=== PATIENT | male | born 2000 | race Caucasian/White ===

== ENCOUNTER 2023-09-19 14:02 | Outpatient (REF) | payer MEDICAID, SELFPAY ==
[2023-09-19 15:49] LABS: CT PCR NOT DETECTED (Not Detect.); NG PCR NOT DETECTED (Not Detect.)
[2023-09-23 02:39] LABS: C. Trachomatis RNA TMA, Throat NOT DETECTED; N. gonorrhoeae RNA TMA, Throat NOT DETECTED
[2023-09-23 12:54] LABS: C.Trachomatis RNA TMA, Rectal NOT DETECTED; N.Gonorrhoeae RNA TMA, Rectal NOT DETECTED
== END 2023-09-19 14:03 | disposition home or self-care (01) ==
LOC: HO.HHCLNP 14:02
PROVIDERS: Visit Provider Advanced Practice Midwife
DX: Z11.3 Encounter for screening for infections with a predominantly sexual mode of transmission (principal)
CPT/HCPCS: 0353U; 87491; 87591

== ENCOUNTER 2024-06-01 16:47 | Outpatient (REF) | payer MEDICAID, SELFPAY ==
[2024-06-02 04:45] LABS: CT PCR NOT DETECTED (Not Detect.); NG PCR NOT DETECTED (Not Detect.)
[2024-06-04 12:24] LABS: C. Trachomatis RNA TMA, Throat NOT DETECTED; N. gonorrhoeae RNA TMA, Throat NOT DETECTED
[2024-06-05 10:03] LABS: C.Trachomatis RNA TMA, Rectal NOT DETECTED; N.Gonorrhoeae RNA TMA, Rectal NOT DETECTED
== END 2024-06-01 16:48 | disposition home or self-care (01) ==
LOC: HO.HHCLNP 16:47
PROVIDERS: Visit Provider Advanced Practice Midwife
DX: Z11.3 Encounter for screening for infections with a predominantly sexual mode of transmission (principal)
CPT/HCPCS: 87491; 87591

== ENCOUNTER 2025-05-27 12:39 | Outpatient (REF) | payer OTHER, SELFPAY ==
--- OUTSIDE RECORDS SUMMARY | 2025-05-27 14:15 | XMS_ITS | Encounter Summary ---
Author Organization [employer] Address [address] [place] [address] [place] [address] Care Team Providers Care Machine Guide Base Winder Name Role Phone Claudine Palencia MD Primary Care Provider + Encounter Details Date Type Department Care Team ([facility] st Contact Info) Description 05/27/2025 2:15 PM EDT Office Visit [facility] [address] [place], [place] [phone] Claudine Palencia MD [address] [place] [address] Sexually transmitted disease counseling (Primary Dx); Mild depression; Gender dysphoria in adult; Preventative health care; Overweight Social History Tobacco Use Types Packs/Day Years Used Date Smoking Tobacco: Former Smokeless Tobacco: Never Alcohol Use Standard Drinks/Week Comments Never 0 (1 standard drink = 0.6 oz pur e alcohol) Depression Answer Date Recorded Patient Health Questionnaire-9 Score 8 05/27/2025 Patient Health Questionnaire-9 Score 8 05/27/2025 Last PHQ-9: Questionnaire Data Not on file 0 05/27/2025 Housing Stability Answer Date Recorded What is your housing situation today? I have housing today, but I am worried about losing housing in the future 05/27/[address] you li ve. Do you have problems with any of the following? None of the above 05/27/2025 Food Insecurity Answer Date Recorded Within the past 12 months, y ou worried that your food would run out before you got money to buy more: Sometimes True 2024 Within the past 12 months,th e food you bought just didn't last and you didn't have enough money to get more: Sometimes True 05/27/2025 Transportation Answer Date Recorded In the past 12 months, has l ack of transportation kept you from medical appts, meetings, work or from getting things needed for daily living? No 05/27/2025 Utilities Answer Date Recorded In the past 12 months, has t he electric, gas, oil or water company threatened to shut off services in your home? No 05/27/2025 Depression Answer Date Recorded Patient Health Questionnaire-2 Score 0 05/27/2025 Internet Access Answer Date Recorded Internet Access Q1 Yes 05/27/2025 Internet Access Q2 Not on file 05/27/2025 Sex and Gender Information Value Date Recorded Sex Assigned at Male 07/02/2022 10:20 AM EDT Legal Sex Female 10:20 AM EDT Gender Identity Transgender Female 07/02/2022 10 :20 AM EDT Sexual Orientation Straight 05/26/2025 8: 46 AM EDT documented as of this encounter Last Filed Vital Signs Vital Sign Reading Time Taken Comments Blood Pressure 128/78 05/27/2025 2:27 PM EDT Pulse 88 05/27/2025 2:27 PM EDT Temperature 36.2 C (97.2 F) 05/27/2025 2:27 PM EDT Respiratory Rate 24 05/27/2025 2:27 PM EDT Oxygen Saturation - - Inhaled Oxygen Concentration - - Weight 84.5 kg (186 lb 6 oz) 05/27/2025 2:27 PM EDT Height 174.6 cm (5' 8.75 ) 05/27/2025 2:27 PM ED T Body Mass Index 27.72 05/27/2025 2:27 PM EDT documented in this encounter Functional Status * Over the past 2 weeks, how often have you been bothered by any of the following problems? Question Answer Date of Assessment Author Patient Health Questionnaire-2 Score 0 05/04 3:38 PM EDT Marilyn Hinton MA * Little interest or pleasure in doing things Answer Date of Assessment Author Not at all 05/27/2025 3:38 PM EDT Marilyn Hinton MA * Feeling down, depressed, or hopeless Answer Date of Assessment Author Not at all 05/27/2025 3:38 PM EDT Marilyn Hinton MA * Trouble falling or staying asleep, or sleeping too much Answer Date of Assessment Author More than half the days 05/27/2025 3:38 PM EDT Marilyn Dunn MA * Feeling tired or having little energy Answer Date of Assessment Author Several days 05/27/2025 3:38 PM EDT Marilyn Hinton MA * Poor appetite or overeating Answer Date of Assessment Author Nearly every day 05/27/2025 3:38 PM EDT Marilyn Hinton MA * Feeling bad about yourself - or that you are a failure or have let yourself or your family down Answer Date of Assessment Author Not at all 05/27/2025 3:38 PM EDT Marilyn Hinton MA * Trouble concentrating on things, such as reading the newspaper or watching television Answer Date of Assessment Author Several days 05/27/2025 3:38 PM EDT Marilyn Hinton MA * Moving or speaking so slowly that other people could have noticed? Or the opposite - being so fidgety or restless that you have been moving around a lot more than usual. Answer Date of Assessment Author Several days 05/27/2025 3:38 PM EDT Marilyn Hinton MA * Thoughts that you would be better off or hurting yourself in some way Answer Date of Assessment Author Not at all 05/27/2025 3:38 PM EDT Marilyn Hinton MA * Patient Health Questionnaire-9 Score Answer Date of Assessment Author 8 05/27/2025 3:38 PM EDT Marilyn Hinton MA * Over the last 2 weeks, how often have you been bothered by any of the following problems? Question Answer Date of Assessment Author Feeling nervous, anxious, or on edge 2 05/04 3:36 PM EDT Marilyn Hinton MA Not being able to stop or co ntrol worrying 0 05/27/2025 3:36 PM EDT Marilyn Hinton M A Worrying too much about diff erent things 0 05/27/2025 3:36 PM EDT Marilyn Hinton M A Trouble relaxing 0 05/27/2025 3:36 PM EDT Marilyn Dunn MA Being so restless that it is hard to sit still 0 05/27/2025 3:36 PM EDT Marilyn Hinton M A Becoming easily annoyed or irritable 1 05/04 3:36 PM EDT Marilyn Hinton MA Feeling afraid as if somethi ng awful might happen 0 05/27/2025 3:36 PM EDT Marilyn Hinton Shauna Babcock CAROL-7 Total Score 3 05/27/2025 3:36 PM EDT Marilyn Hinton MA documented as of this encounter Plan of Treatment Upcoming Encounters Date Type Department Care Team (Late st Contact Info) Description 08/06/2025 9:45 AM EST Office Visit [facility] [address] [place] [address] Claudine Palencia MD [address] [place], [place] [phone] Scheduled Orders Name Type Priority Associated Diagnoses Orde r Schedule Hepatitis Panel, General Lab Routine Sexually transmitted disease counseling Expected: 05/27/2025 (Approximate), Expires: 05/27/2026 HIV-1/2 Antigen and Antibodies, Fourth Generation, with Reflexes Lab Routine Sexually transmitted disease counseling Expected: 05/27/2025 (Approximate), Expires: 05/27/2026 Lipid Panel with Reflex to Direct LDL Lab Routine Overweight Expected: 05/27/2025 (Approximate), Expires: 05/27/2026 Syphilis Screen Lab Routine Sexually transmitted disease counseling Expected: 05/27/2025 (Approximate), Expires: 05/27/2026 TSH with Reflex to Free T4 Lab Routine Mild depression Overweight Expected: 05/27/2025 (Approximate), Expires: 05/27/2026 CBC auto differential Lab Routine Mild depression Expected: 05/27/2025 (Approximate), Expires: 05/27/2026 Comprehensive Metabolic Panel Lab Routine Mild depression Overweight Expected: 05/27/2025 (Approximate), Expires: 05/27/2026 Chlamydia/N. Gonorrhoeae RNA, TMA, Rectal Microbiology Routine Sexually transmitted disease counseling Expected: 05/27/2025 (Approximate), Expires: 05/27/2026 Chlamydia/N. Gonorrhoeae RNA, TMA, Throat Microbiology Routine Sexually transmitted disease counseling Expected: 05/27/2025 (Approximate), Expires: 05/27/2026 documented as of this encounter Visit Diagnoses Diagnosis Sexually transmitted disease counseling- Primary Counseling on other sexually transmitted diseases Mild depression Depressive disorder, not elsewhere classified Gender dysphoria in adult Preventative health care Routine general medical examination at a health care facility Overweight documented in this encounter Additional Health Concerns Assessment Noted Time PHQ-9 Depression Total Score: 8 05/27/20 3:38 PM EDT documented as of this encounter Care Teams Machine Guide Base Winder Relationship Specialty Start Date End Date Claudine Palencia MD [address] [place] [phone] PCP - General Internal Medicine 05/27/25 documented as of this encounter
--- OUTSIDE RECORDS SUMMARY | 2025-05-28 14:13 | XMS_ITS | Encounter Summary ---
Author Organization [employer] Address [address] [place] [address] Care Team Providers Care Medical Accountant Name Role Phone Zulema Almonte Primary Care Provider [phone] Claudine Palencia MD Primary Care Provider + Reason for Visit * Reason Onset Date Comments Med Refill 09/12/2023 Encounter Details Date Type Department Care Team (Late st Contact Info) Description 09/12/2023 Telephone [facility] [address] [place], [place] [phone] Zulema Almonte ANP [address] [place], [place] [phone] Med Refill Social History Tobacco Use Types Packs/Day Years Used Date Smoking Tobacco: Former Smokeless Tobacco: Never Sex and Gender Information Value Date Recorded Sex Assigned at Male 07/02/2022 10:20 AM EDT Legal Sex Female 10:20 AM EDT Gender Identity Transgender Female 07/02/2022 10 :20 AM EDT Sexual Orientation Straight 05/26/2025 8: 46 AM EDT documented as of this encounter Miscellaneous Notes * Telephone Encounter - Viktoriya Orellana LPN - 09/12/2023 2:12 PM EST Medication was sent on 08/23/23 #12 with 1 refill to [facility] #[id number]. * Telephone Encounter - Claudia Murillo - 09/12/2023 2:09 PM EST TC from pt requesting medication refill. Medications needing refill : Syringe/Needle, Disp, (B-D 3CC LUER-LILIA SYR 20GX1 ) 20G X 1 3 ML misc To be sent to: [id number] - [address] documented in this encounter Plan of Treatment Upcoming Encounters Date Type Department Care Team (Late st Contact Info) Description 08/06/2025 9:45 AM EST Office Visit [facility] [address] [place] [address] Claudine Palencia MD [address] [place] [phone] documented as of this encounter Visit Diagnoses Not on filedocumented in this encounter Care Teams Medical Accountant Relationship Specialty Start Date End Date Zulema Almonte ANP [address] [place] [phone] PCP - General Family Medicine 04/27/22 12/24/23 Claudine Palencia MD [address] [place] [id number] PCP - General Internal Medicine 05/27/25 documented as of this encounter
--- OUTSIDE RECORDS SUMMARY | 2025-05-28 14:13 | XMS_ITS | Encounter Summary ---
Author Organization [employer] Address [address] [place] [address] [place] [address] Care Team Providers Care Operations Welder Name Role Phone Claudine Palencia MD Primary Care Provider + Encounter Details Date Type Department Care Team ([facility] st Contact Info) Description 12/30/2024 Telephone [facility] [address] [place], [place] [phone] Caleb Sewell MD [address] [place] [address] Social History Tobacco Use Types Packs/Day Years Used Date Smoking Tobacco: Former Smokeless Tobacco: Never Alcohol Use Standard Drinks/Week Comments Never 0 (1 standard drink = 0.6 oz pur e alcohol) Depression Answer Date Recorded Patient Health Questionnaire-9 Score 3 01/31/2024 Patient Health Questionnaire-9 Score 3 01/31/2024 Last PHQ-9: Questionnaire Data Not on file 0 01/31/2024 Housing Stability Answer Date Recorded What is your housing situation today? I have lien [place] 10/29/[address] you li ve. Do you have problems with any of the following? None of the above 10/29/2023 Food Insecurity Answer Date Recorded Within the past 12 months, y ou worried that your food would run out before you got money to buy more: Never True 10/29/2023 Within the past 12 months,th e food you bought just didn't last and you didn't have enough money to get more: Never True Transportation Answer Date Recorded In the past 12 months, has l ack of transportation kept you from medical appts, meetings, work or from getting things needed for daily living? Yes, it has kept me from medical appointments or getting medications. 10/29/2023 Utilities Answer Date Recorded In the past 12 months, has t he electric, gas, oil or water company threatened to shut off services in your home? No 10/29/2023 Depression Answer Date Recorded Patient Health Questionnaire-2 Score 2 01/31/2024 Sex and Gender Information Value Date Recorded Sex Assigned at Male 07/02/2022 10:20 AM EDT Legal Sex Female 10:20 AM EDT Gender Identity Transgender Female 07/02/2022 10 :20 AM EDT Sexual Orientation Straight 05/26/2025 8: 46 AM EDT documented as of this encounter Plan of Treatment Upcoming Encounters Date Type Department Care Team (Late st Contact Info) Description 08/06/2025 9:45 AM EST Office Visit [facility] [address] [place] [phone] Claudine Palencia MD [address] [place] [phone] documented as of this encounter Visit Diagnoses Not on filedocumented in this encounter Additional Health Concerns Assessment Noted Time PHQ-9 Depression Total Score: 3 01/31/20 24 11:23 AM EDT documented as of this encounter Care Teams Operations Welder Relationship Specialty Start Date End Date Claudine Palencia MD [address] [place] [phone] PCP - General Internal Medicine 05/27/25 documented as of this encounter
--- OUTSIDE RECORDS SUMMARY | 2025-05-28 14:13 | XMS_ITS | Encounter Summary ---
Author Organization [employer] [facility] Address [address] [place] [address] Care Team Providers Care Medical I D Sales Name Role Phone Zulema Almonte Primary Care Provider [phone] Claudine Palencia MD Primary Care Provider + Encounter Details Date Type Department Care Team (Late st Contact Info) Description 08/06/2022 Telephone [facility] [address] [place] [phone] Zulema Almonte ANP [address] [place] [phone] Social History Tobacco Use Types Packs/Day Years Used Date Smoking Tobacco: Never Assessed Sex and Gender Information Value Date Recorded [...] Description 08/06/2025 9:45 AM EST Office Visit [facility] [address] [place] [phone] Claudine Palencia MD [address] [place] [address] documented as of this encounter Visit Diagnoses Not on filedocumented in this encounter Care Teams Medical I D Sales Relationship Specialty Start Date End Date Zulema Almonte ANP [address] [place] [address], [place] [address] PCP - General Family Medicine 04/27/22 12/24/23 Claudine Palencia MD [address] [place] [address] PCP - General Internal Medicine 05/27/25 documented as of this encounter
--- OUTSIDE RECORDS SUMMARY | 2025-05-28 14:13 | XMS_ITS | Encounter Summary ---
Author Organization [employer] Address [address] [place] [address] [place] [address] Care Team Providers Care Contract Agent Name Role Phone Claudine Palencia MD Primary Care Provider + Reason for Visit * Reason Comments Med Change Request Encounter Details Date Type Department Care Team ([facility] st Contact Info) Description 01/19/2024 Refill [facility] [address] [place], [place] [phone] Caleb Sewell MD [address] [place], [place] [phone] Social History Tobacco Use Types Packs/Day Years Used Date Smoking Tobacco: Former Smokeless Tobacco: Never Housing Stability Answer Date Recorded What is your housing situation today? I have lien sing 10/29/[address] you li [...] t he electric, gas, oil or water [employer] threatened to shut off services in your home? No 10/29/2023 Sex and Gender Information Value Date Recorded [...] Description 08/06/2025 9:45 AM EST Office Visit [facility] [address] [place] [address] Claudine Palencia MD [address] [place] [address] documented as of this encounter Visit Diagnoses Not on filedocumented in this encounter Care Teams Contract Agent Relationship Specialty Start Date End Date Claudine Palencia MD [address] [place] [address] PCP - General Internal Medicine 05/27/25 documented as of this encounter
--- OUTSIDE RECORDS SUMMARY | 2025-05-28 14:13 | XMS_ITS | Encounter Summary ---
Author Organization [employer] [facility] Address [address] [place] [address] Care Team Providers Care Corporate Law Specialist Name Role Phone Zulema Almonte Primary Care Provider [phone] Claudine Palencia MD Primary Care Provider + Reason for Visit * Reason Onset Date Comments Appointment Request 09/12/2023 Encounter Details Date Type Department Care Team (Late Contact Info) Description 09/12/2023 Telephone [facility] [address] [place] [phone] Zulema Almonte ANP [address] [place] [phone] Appointment Request Social History Tobacco Use Types Packs/Day Years [...] encounter Miscellaneous Notes * Telephone Encounter - Claudia Murillo - 09/12/2023 2:10 PM EST Tc from pt requesting a appt with Dr Galeana. documented in this encounter Plan of Treatment Upcoming Encounters Date Type Department Care Team (Late Contact Info) Description 08/06/2025 9:45 AM EST Office Visit [facility] [address] [place] [address] Claudine Palencia MD [address] [place] [address] documented as of this encounter Visit Diagnoses Not on filedocumented in this encounter Care Teams Corporate Law Specialist Relationship Specialty Start Date End Date Zulema Almonte ANP [address] [place] [address] PCP - General Family Medicine 04/27/22 12/24/23 Claudine Palencia MD [address] [place] [address] PCP - General Internal Medicine 05/27/25 documented as of this encounter
--- OUTSIDE RECORDS SUMMARY | 2025-05-28 14:13 | XMS_ITS | Encounter Summary ---
Author Organization [employer] Address [address] [place] [address] Care Team Providers Care Neon Pumper Name Role Phone Claudine Palencia MD Primary Care Provider + Reason for Visit * Reason Comments Med Change Request Encounter Details Date Type Department Care Team ([facility] st Contact Info) Description 03/05/2024 Refill [facility] [address] [place], [place] [phone] Whitney Glasgow MD [address] [place] [address] Social History Tobacco Use Types Packs/Day Years [...] 9:45 AM EST Office Visit [facility] [address] [place] [phone] Claudine Palencia MD [address] [place] [address] documented as of this encounter Visit Diagnoses Not on filedocumented in this encounter Additional Health Concerns Assessment Noted Time PHQ-9 Depression Total Score: 3 01/31/20 24 11:23 AM EDT documented as of this encounter Care Teams Neon Pumper Relationship Specialty Start Date End Date Claudine Palencia MD [address] [place] [address] PCP - General Internal Medicine 05/27/25 documented as of this encounter
--- OUTSIDE RECORDS SUMMARY | 2025-05-28 14:13 | XMS_ITS | Encounter Summary ---
Author Organization [employer] Address [address] [place] [address] Care Team Providers Care Stave Log Cut Off Saw Operator Name Role Phone Unavailable Primary Care Provider Unavailabl e Reason for Visit * Reason Onset Date Comments chart prep 05/26/2025 Encounter Details Date Type Department Care Team ([facility] Contact Info) Description 05/26/2025 Telephone [facility] [address] [place] [address] Claudine Palencia MD [address] [place] [address] chart prep Social History Tobacco Use Types Packs/Day Years [...] encounter Miscellaneous Notes * Telephone Encounter - Ania Carreon MA - 05/26/2025 3:57 PM EDT Chart Prep Labs: not applicable Images: not applicable Referrals: not applicable Vaccines due: Covid, Flu, and DTAP Screenings: not applicable Overdue care gaps: SBIRT, SDOH, PHQ-9, CAROL-7, and Disability screen documented in this encounter Plan of Treatment Upcoming Encounters Date Type Department Care Team (Late st Contact Info) Description 08/06/2025 9:45 AM EST Office Visit [facility] [address] [place] [address] Claudine Palencia MD [address] [place] [address] documented as of this encounter Visit Diagnoses Not on filedocumented in this encounter Additional Health Concerns Assessment Noted Time PHQ-9 Depression Total Score: 3 01/31/20 11:23 AM EDT documented as of this encounter
--- OUTSIDE RECORDS SUMMARY | 2025-05-28 14:13 | XMS_ITS | Clinical Summary ---
Author Organization [employer] Address [address] [place] [id number] Care Team Providers Care Package Maker Name Role Phone Claudine Palencia MD Primary Care Provider + Allergies No known active allergies Medications Alcohol Swabs (Alcohol Prep) pads 1 each 1 (one) time per week. 100 each 1 023 Active estradiol valerate (Delestrogen) 20 MG/ML injection INJECT 0.5 ML INTRAMUSCULARLY ONCE A WEEK DIRECTED 5 mL 025 Active Needle, Disp, (B-D HYPODERMIC NEEDLE 22GX1 ) 22G X 1 misc USE INTRAMUSCULARLY ONCE A WEEK. Use to administer medication 12 each 025 Active Syringe/Needl e, Disp, (B-D 3CC LUER-LILIA SYR 20GX1 ) 20G X 1 3 ML misc USE TO DRAW UP MEDICATION ONCE A WEEK 12 each Active spironolacton e (Aldactone) 25 MG tablet Take 1 tablet (25 mg) by mouth Once per day. 30 tablet 11 025 2025 Active estradiol valerate (Delestrogen) 20 MG/ML injection INJECT 0.5 ML INTRAMUSCULARLY ONCE A WEEK DIRECTED 5 mL 024 2024 Discontinued(R eorder (will not trigger notification to Pharmacy)) Needle, Disp, (B-D HYPODERMIC NEEDLE 22GX1 ) 22G X 1 misc USE INTRAMUSCULARLY ONCE A WEEK. Use to administer medication 12 each 024 2024 Discontinued(R eorder (will not trigger notification to Pharmacy)) Syringe/Needl e, Disp, (B-D 3CC LUER-LILIA SYR 20GX1 ) 20G X 1 3 ML misc USE TO DRAW UP MEDICATION ONCE A WEEK 12 each 024 2024 Discontinued(R eorder (will not trigger notification to Pharmacy)) Active Problems Problem Noted Date Diagnosed Date Gender dysphoria in adult 02/05/2024 Preoperative clearance 01/31/2024 Assessment & Plan (01/31/2024 2:58 PM EDT): 23 yo patient with multiple medical conditions here for preop evaluation. Most of her medical conditions are stable enough so that she can safely undergo planned procedure. She/he is a LOW risk patient. She's undergoing a LOW risk procedure. The risk of CV complication according to [employer] is 3.9%. At this time SHE IS ON OPTIMAL CONDITION for planned procedure. -Call back APARNA should he develops fever, cough, SOB, CP, UTI sxs or any other acute issue Mild depression 06/28/2017 Presence of tympanostomy tube in tympanic membra ne 06/28/2017 Encounters Date Type Department Care Team Description 05/28/2025 Patient Outreach [address] [address] Claudine Palencia MD Care Coordination ([facility] outreach for SDOH housing search-referral completed ) 05/27/2025 2:15 PM EDT Office Visit [address] [phone] Claudine Palencia MD Sexually transmitted disease counseling (Primary Dx); Mild depression; Gender dysphoria in adult; Preventative health care; Overweight 05/27/2025 Travel 05/26/[address] [address] Claudine Palencia MD chart prep 05/19/2025 Patient Outreach [address] [address] Claudine Palencia MD Pre-visit Planning ((Unable to reach for PVP screening, LVM) to be completed in office ) 04/02/2025 Orders Only [facility] [address] [place], [place] [address] [address] Jeanette Garcia RN 03/02/2025 Telephone [facility] [address] [place] [address] Caleb Sewell MD CHW - New Patient Assistance from Last 3 Months Immunizations Immunization Administration Dates Next Due DTaP 03/25/2007, 5,2002,07/09,2002 HPV 9-Valent 06/28/2017,09/29/2013 Hep A, ped/adol, 2 dose 06/28/2017,03/04/2012 Hep B, Adolescent or Pediatric 2002,2001,2002 Hib ([facility]) 06/17/2003, 3,2002,05/22 IPV 03/25/2007, 3,2002,05/22 Influenza injectable quadriv alent preservative free 06/28/2017 Influenza, IIV3, injectable 08/19/2009 MMR 05/29/2011,06/17/2003 Meningococcal MCV4P ACYW-135 09/29/2013 Pneumococcal Conjugate PCV 7 06/17/2003, 2002,2002,05/22 Tdap 09/29/2013 Varicella 05/29/2011,06/17/2003 Social History Tobacco Use Types Packs/Day Years Used Date Smoking Tobacco: Former Smokeless Tobacco: Never Tobacco Cessation:Counseling Given: Not Answered Alcohol Use Standard Drinks/Week Comments Never 0 [...] the past 12 months, has t he [employer], gas, oil or water company threatened to [...] Orientation Straight 05/26/2025 8: 46 AM EDT Last Filed Vital Signs Vital Sign Reading Time Taken Comments Blood Pressure 128/78 05/27/2025 2:27 PM EDT Pulse 88 05/27/2025 2:27 PM EDT Temperature 36.2 C (97.2 F) 05/27/2025 2:27 PM EDT Respiratory Rate 24 05/27/2025 2:27 PM EDT Oxygen Saturation 98% 06/01/2024 2:05 PM EDT Inhaled Oxygen Concentration - - Weight 84.5 kg (186 lb 6 oz) 05/27/2025 2:27 PM EDT Height 174.6 cm (5' 8.75 ) 05/27/2025 2:27 PM ED T Body Mass Index 27.72 05/27/2025 2:27 PM EDT Plan of Treatment Upcoming Encounters Date Type Department Care Team (Late st Contact Info) Description 08/06/2025 9:45 AM EST Office Visit [facility] [address] [place] [address] Claudine Palencia MD [address] [place] [address] Health Maintenance Due Date Last Done Comments Meningococcal B Vaccine (1 of 2 - Standard) 2018 DTaP/Tdap/Td Vaccines (7 - Td or Tdap) 09/29/2023 09/29/2013, 03/25/2007, 09/07/2004, Additional history exists COVID-19 Vaccine ( - season) 2025 Influenza Vaccine (#1) 2025 06/28/2017, 2008 Family Planning (PISQ) 06/01/2025 06/01/2024 Chlamydia and Gonorrhea Screening 03/26/2026 03/26/2025, 03/26/2025, 03/26/2025, Additional history exists Alcohol/Substance Use Screening 05/27/2026 05/27/2025 Depression Screening 05/27/2026 05/27/2025, 05/27/20 Disability Screening 05/27/2026 05/27/2025 SDOH Screening 05/27/2026 05/27/2025 Tobacco Screening 05/27/2026 05/27/2025 Zoster Vaccines (1 of 2) 02/04/2052 RSV Patients and Patients Aged 60 years or older (1 - 1-dose 75+ series) 2077 Hepatitis B Vaccines Completed 2002, 2002, 2002 HIB Vaccines Completed 06/17/2003, 10/2002, 2002, Additional history exists Pneumococcal Vaccine: Pediatrics (0 to 5 Years) and At-Risk Patients (6 to 49) Years Aged Out 06/17/2003, 2002, 2002, Additional history exists No longer eligible based on patient's age to complete this topic IPV Vaccines Completed 03/25/2007, 10/2002, 2002, Additional history exists Meningococcal Vaccine Aged Out 09/29/2013 No loree mason eligible based on patient's age to complete this topic HPV Vaccines Completed 06/28/2017, 09/29/2013 Hepatitis A Vaccines Completed 06/28/2017, 03/04/20 12 HIV Screening Completed 03/26/2025, 01/2023, 12/19/2021, Additional history exists Hepatitis C Screening Completed 03/26/2025 , 12/06/2022, 09/06/2021, Additional history exists RSV under 20 months Aged Out No longe r eligible based on patient's age to complete this topic Rotavirus Vaccines Aged Out No longer eligible based on patient's age to complete this topic Procedures Procedure Name Priority Date/Time Associated Diagnosis Comments HIV ANTIBODY/ANTIGEN ([facility]) Routine 03/26/2025 HEPATITIS C ANTIBODY ([facility]) Routine 03/26/2025 SYPHILIS ABS ([facility]) Routine 03/26/2025 CHLAMYDIA/GONORRHEA - URINE ([facility]) Routine 03/26/2025 CHLAMYDIA/GONORRHEA RECTAL SWAB ([place] [facility]) Routine 03/26/2025 CHLAMYDIA/GONORRHEA THROAT SWAB ([place] [facility]) Routine 03/26/2025 from Last 3 Months Results * Chlamydia/Gonorrhea, Rectal Swab ([place] [facility]) (03/26/2025) Chlamydia Rectal Swab Negative Negative, Indeterminate, None Detected, Invalid, Specimen unsatisfactory for evaluation, 2+ Gonorrhea Rectal Swab Negative Negative, Indeterminate, None Detected, Invalid, Specimen unsatisfactory for evaluation, 2+ Swab 03/26/2025 Historical Provider MD LAB MICROBIOLOGY - GENERA L ORDERABLES Final Result * Chlamydia/Gonorrhea Throat Swab ([place] [facility]) (03/26/2025) Chlamydia Throat Swab Negative Gonorrhea Throat Swab Negative Swab 03/26/2025 Historical Provider MD LAB MICROBIOLOGY - GENERA L ORDERABLES Final Result * Chlamydia/Gonorrhea, Urine ([place] [facility]) (03/26/2025) Chlamydia, Urine Negative Negative, Indeterminate, None Detected, Invalid, Specimen unsatisfactory for evaluation, Weakly Positive, 2+ Gonorrhea, Urine Negative Negative, Indeterminate, None Detected, Invalid, Specimen unsatisfactory for evaluation, Weakly Positive, 2+ Urine 03/26/2025 Result [facility] MD LAB URINE ORDERABLES Tamiko l Result * Syphilis Antibodies (D[facility]) (03/26/2025) Syphilis Abs Nonreactive Borderline, Nonreactive, Weakly Reactive, Inconclusive, Specimen unsatisfactory for evaluation Blood Venous blood specimen / Unknown 03/26/2025 Result [facility] MD LAB BLOOD ORDERABLES Tamiko l Result * Hepatitis C Antibody ([facility]) (03/26/2025) Hepatitis C Ab Nonreactive Blood 03/26/2025 Result [facility] MD LAB BLOOD ORDERABLES Tamiko l Result * HIV Ab/Ag ([facility]) (03/26/2025) HIV Ag/Ab Nonreactive Blood 03/26/2025 Result [facility] MD LAB BLOOD ORDERABLES Edit ed Result - Final from Last 3 Months Insurance [employer] [facility] [facility] PPO Care Teams Package Maker Relationship Specialty Start Date End Date Claudine Palencia MD [address] [place] [id number] PCP - General Internal Medicine 05/27/25
--- OUTSIDE RECORDS SUMMARY | 2025-05-28 14:13 | XMS_ITS | Encounter Summary ---
Author Organization [employer] Address [address] [place] [address] [place] [address] Care Team Providers Care Optometrist Name Role Phone Claudine Palencia MD Primary Care Provider + Reason for Visit * Reason Comments Care Coordination [facility] outreach for SDO H housing search-referral completed Encounter Details Date Type Department Care Team (Latest Contact Info) Description 05/28/2025 Patient Outreach [facility] [address] [place] [address] Claudine Palencia MD [address] [place] [address] Care Coordination ([facility] outreach for SDOH housing search-referral completed ) Social History Tobacco Use Types Packs/Day Years [...] AM EDT documented as of this encounter Progress Notes * Lakhwinder Mackenzie - 05/28/2025 9:37 AM EDT CHW Lakhwinder Mackenzie, placed outbound call to patient for assistance with SDOH as a referral was received by the provider. Patient's name and were confirmed. Patient screened positive for the following [facility] housing insecurities. Patient states is staying with her friend but is searching for her own apartment. CHW referral patient to the list of application mail out to her address on file. Patient verbalizes understanding, and able to agree with plan to follow up herself. Patient educated on extended clinic hours on Mondays through Wednesdays, and Walk-In Urgent Care Located in [facility]. Patient provided with after-hours line for [facility], , which offer night time triage service and option to transfer to intelligence operations specialist provider if needed. documented in this encounter Plan of Treatment Upcoming Encounters Date Type Department Care Team (Late st Contact Info) Description 08/06/2025 9:45 AM EST Office Visit [facility] [address] [place] [address] Claudine Palencia MD [address] [place] [address] documented as of this encounter Visit Diagnoses Not on filedocumented in this encounter Additional Health Concerns Assessment Noted Time PHQ-9 Depression Total Score: 8 05/27/20 25 3:38 PM EDT documented as of this encounter Care Teams Optometrist Relationship Specialty Start Date End Date Claudine Palencia MD [address] [place] [address] PCP - General Internal Medicine 05/27/25 documented as of this encounter
--- OUTSIDE RECORDS SUMMARY | 2025-05-28 14:13 | XMS_ITS | Encounter Summary ---
Author Organization [employer] Address [address] [place] [address] 7 [place] [address] Care Team Providers Care Intelligence Clerk Name Role Phone Claudine Palencia MD Primary Care Provider + Encounter Details Date Type Department Care Team (Latest Contact Info) Description 05/27/2025 Travel Social History Tobacco Use Types Packs/Day Years [...] AM EDT documented as of this encounter Functional Status * Over the [...] 3:36 PM EDT Marilyn Hinton M A CAROL-7 Total Score 3 05/27/2025 3:36 PM EDT Marilyn Hinton MA documented as of this encounter Plan of Treatment Upcoming Encounters Date Type Department Care Team (Late st Contact Info) Description 08/06/2025 9:45 AM EST Office Visit [facility] [address] [place] [address] Claudine Palencia MD [address] [place] [address] documented as of this encounter Visit Diagnoses Not on filedocumented in this encounter Additional Health Concerns Assessment Noted Time PHQ-9 Depression Total Score: 8 05/27/20 3:38 PM EDT documented as of this encounter Care Teams Intelligence Clerk Relationship Specialty Start Date End Date Claudine Palencia MD [address] [place] [id number] PCP - General Internal Medicine 05/27/25 documented as of this encounter
--- OUTSIDE RECORDS SUMMARY | 2025-05-28 14:13 | XMS_ITS | Encounter Summary ---
Author Organization [employer] Address [address] [place] [address] [place] [address] Care Team Providers Care Drupal Web Developer Name Role Phone Claudine Palencia MD Primary Care Provider + Reason for Visit * Reason Comments Med Refill Encounter Details Date Type Department Care Team ([facility] st Contact Info) Description 03/05/2024 Refill [facility] [address] [place], [place] [phone] Zulma Galeana, [facility] [address] [place] [address] Social History Tobacco Use Types Packs/Day Years [...] Description 08/06/2025 9:45 AM EST Office Visit [facility] [address] [place] [address] Claudine Palencia MD [address] [place] [address] documented as of this encounter Visit Diagnoses Not on filedocumented in this encounter Additional Health Concerns Assessment Noted Time PHQ-9 Depression Total Score: 3 01/31/20 24 11:23 AM EDT documented as of this encounter Care Teams Drupal Web Developer Relationship Specialty Start Date End Date Claudine Palencia MD [address] [place] [address] PCP - General Internal Medicine 05/27/25 documented as of this encounter
[2025-05-31 20:14] LABS: C. Trachomatis RNA TMA, Throat NOT DETECTED (NOT DETECTED); N. gonorrhoeae RNA TMA, Throat NOT DETECTED (NOT DETECTED)
[2025-05-31 20:14] LABS: C.Trachomatis RNA TMA, Rectal NOT DETECTED (NOT DETECTED); N.Gonorrhoeae RNA TMA, Rectal NOT DETECTED (NOT DETECTED)
== END 2025-05-27 12:40 | disposition home or self-care (01) ==
LOC: HO.LNP 12:39
PROVIDERS: Visit Provider Internal Medicine
DX: Z70.8 Other sex counseling (principal); Z11.8 Encounter for screening for other infectious and parasitic diseases
CPT/HCPCS: 87491; 87591

== ENCOUNTER 2025-08-06 16:54 | Outpatient (REF) | payer SELFPAY ==
[2025-08-09 21:03] LABS: C. Trachomatis RNA TMA, Throat NOT DETECTED; N. gonorrhoeae RNA TMA, Throat NOT DETECTED
[2025-08-09 21:23] LABS: C.Trachomatis RNA TMA, Rectal NOT DETECTED; N.Gonorrhoeae RNA TMA, Rectal NOT DETECTED
== END 2025-08-06 16:55 | disposition home or self-care (01) ==
LOC: HO.HHCLNP 16:54
PROVIDERS: Visit Provider Internal Medicine
DX: Z20.2 Contact with and (suspected) exposure to infections with a predominantly sexual mode of transmission (principal)
CPT/HCPCS: 87491; 87591